=== PATIENT | male | born 1970 | race Caucasian/White ===

== ENCOUNTER 2021-09-05 07:24 | Day surgery (SDC) | payer MEDICAID ==
[~2021-09-05] VITALS: Ht 175.3 cm; Wt 106.6 kg
[2021-09-05] MEDS ORDERED: MIDAZOLAM HCL 5 MG/5 ML VIAL ONE (09:19)
[2021-09-05] MEDS ORDERED: SIMETHICONE 40 MG/0.6 ML ML ONE (09:19)
[2021-09-05] MEDS ORDERED: fentaNYL CITRATE/PF 100 MCG/2 ML AMP ONE (09:19)
[2021-09-05 10:25] VITALS: BP_SYST 118
== END 2021-09-05 10:35 | disposition home or self-care (01) ==
LOC: SDS 07:24
PROVIDERS: ATTEND Internal Medicine
DX: K29.51 Unspecified chronic gastritis with bleeding (principal); K20.90 Esophagitis, unspecified without bleeding; K29.50 Unspecified chronic gastritis without bleeding; K92.0 Hematemesis; Z79.899 Other long term (current) drug therapy; Z20.822 Contact with and (suspected) exposure to COVID-19
CPT/HCPCS: 36415; 43239; 82962; 87081; 87426; 88305; 88312; 88313; 88342; 99152; G0378; J2250; J3010